=== PATIENT | female | born 1965 | race Asian ===

== ENCOUNTER 2017-07-24 08:00 | Emergency (ER) | payer BC ==
--- NOTE | 2017-07-24 08:57 | EDM.PDOCBH ---
ED HPI GENERAL MEDICAL PROBLEM - General Stated Complaint: Acetaminophen overdose Time Seen by Provider: 07/24/17 08:29 Source of Information: Reports: Patient History Limitations: Reports: No Limitations - History of Present Illness INITIAL COMMENTS - FREE TEXT/NARRATIVE: Patient presents with intentional acetaminophen ingestion at about 0700 this morning. She and her were arguing and he threatened divorce and taking her house. She is very upset and worried about this because the house was hers and was in a trust for her kids after her first and now she is afraid she will lose it all. So she grabbed a bottle of 650mg acetaminophen and took three handfuls and swallowed them. She dropped a few in the sink and there are 41 left of a 100 tablet bottle. We estimate approximately 50 tablets which would be 32,500 mg. We contacted poison control who gave us instruction on testing and treatment; they advised drawing acetaminophen level now and again at 4 hours post-ingestion and to initiate treatment, if needed, within 8 hours. Patient denies any previous attempts of suicide and doesn't have frequent or on-going thoughts of suicide. She denies history of liver problems. She takes no other medications and denies any other meds today than the Acetaminophen. Patient's informs us that she has tried this twice before but didn't seek medical treatment. - Related Data Allergies Allergy/AdvReac Type Severity Reaction Status Date / Time No Known Drug Allergies Allergy Cannot Verified 07/24/17 09:01 Remember ED ROS GENERAL - Review of Systems Review Of Systems: See Below Constitutional: Denies: Fever, Chills, Malaise, Weakness HEENT: Reports: Other (she has been crying all morning which is causing runny/ stuffy nose). Denies: Ear Pain, Throat Swelling, Vision Change Respiratory: Denies: Shortness of Breath, Wheezing Cardiovascular: Denies: Chest Pain, Syncope Endocrine: Reports: No Symptoms GI/Abdominal: Denies: Difficulty Swallowing, Distension, Vomiting : Denies: Dysuria, Flank Pain Musculoskeletal: Reports: No Symptoms Skin: Denies: Cyanosis, Jaundice, Mottled, Pallor, Diaphoresis Neurological: Denies: Confusion, Dizziness, Headache, Numbness, Seizure, Trouble Speaking, Difficulty Walking, Weakness Psychiatric: Reports: Other (Patient denies history of depression.). Denies: Agitation, Confusion ED EXAM, BEHAVIORAL HEALTH - Physical Exam Exam: See Below Exam Limited By: No Limitations General Appearance: Alert, WD/WN, No Apparent Distress COURSE, BEHAVIORAL HEALTH COMP - Course Vital Signs: Last Vital Signs Temp 98.7 F 07/24/17 08:10 Pulse 104 H 07/24/17 08:10 Resp 20 07/24/17 08:10 BP 139/93 H 07/24/17 08:10 Pulse Ox Orders, Labs, Meds: Active Orders 24 hr Category Date Time Status Acetylcysteine [Acetadote 20%] 9,600 mg Med 07/24/17 09:53 Active Dextrose 5% in Water 250 ml IV ONETIME Medication Orders Acetylcysteine 9,600 mg/ (Dextrose/Water) 298 mls @ 298 mls/hr IV ONETIME ONE Stop: 07/24/17 10:41 Last Admin: 07/24/17 09:58 Dose: 298 mls/hr Laboratory Tests 07/24/17 07/24/17 07/24/17 Range/Units 08:35 08:35 08:35 WBC 9.6 (5.0-10.0) 10^3/uL RBC 5.36 (3.80-5.50) 10^6/uL Hgb 16.0 D (12.0-16.0) g/dL Hct 48.9 H (37.0-47.0) % MCV 91.2 D (82.0-92.0) fL MCH 29.9 (27.0-31.0) pg MCHC 32.7 (32.0-36.0) g/dL RDW 12.4 (11.5-14.5) % Plt Count 279 (150-300) 10^3/uL MPV 8.1 (7.4-10.4) fL Neut % (Auto) 61.1 (50.0-70.0) % Lymph % (Auto) 31.4 (20.0-40.0) % Eagle % (Auto) 5.7 (2.0-8.0) % Eos % (Auto) 1.4 (1.0-3.0) % Baso % (Auto) 0.4 (0.0-1.0) % Neut # (Auto) 6.0 (2.5-7.0) 10^3/uL Lymph # (Auto) 3.0 (1.0-4.0) 10^3/uL Eagle # (Auto) 0.5 (0.1-0.8) 10^3/uL Eos # (Auto) 0.1 (0.1-0.3) 10^3/uL Baso # (Auto) 0.0 (0.0-0.1) 10^3/uL PT (8.9-11.4) SEC INR (0.9-1.1) Sodium 142 (136-145) mmol/L Potassium 3.3 (3.3-5.3) mmol/L Chloride 104 (98-115) mmol/L Carbon Dioxide 18.6 L (21.0-32.0) mmol/L BUN 11 (6-25) mg/dL Creatinine 0.55 (0.51-1.17) mg/dL Est Cr Clr Drug Dosing 96.78 mL/min Estimated GFR (MDRD) > 60 mL/min Glucose 128 H (70-110) mg/dL Calcium 8.8 (8.7-10.3) mg/dL Total Bilirubin 0.4 (0.2-1.0) mg/dL Direct Bilirubin 0.1 (0.0-0.2) mg/dL AST 19 (15-37) U/L ALT 26 (12-78) U/L Alkaline Phosphatase 67 (46-116) IU/L Total Protein 8.0 (6.4-8.2) g/dL Albumin 4.27 (3.00-4.80) g/dL Acetaminophen 209.7 H (10.0-30.0) ug/mL 07/24/17 Range/Units 08:35 WBC (5.0-10.0) 10^3/uL RBC (3.80-5.50) 10^6/uL Hgb (12.0-16.0) g/dL Hct (37.0-47.0) % MCV (82.0-92.0) fL MCH (27.0-31.0) pg MCHC (32.0-36.0) g/dL RDW (11.5-14.5) % Plt Count (150-300) 10^3/uL MPV (7.4-10.4) fL Neut % (Auto) (50.0-70.0) % Lymph % (Auto) (20.0-40.0) % Eagle % (Auto) (2.0-8.0) % Eos % (Auto) (1.0-3.0) % Baso % (Auto) (0.0-1.0) % Neut # (Auto) (2.5-7.0) 10^3/uL Lymph # (Auto) (1.0-4.0) 10^3/uL Eagle # (Auto) (0.1-0.8) 10^3/uL Eos # (Auto) (0.1-0.3) 10^3/uL Baso # (Auto) (0.0-0.1) 10^3/uL PT 9.5 (8.9-11.4) SEC INR 0.9 (0.9-1.1) Sodium (136-145) mmol/L Potassium (3.3-5.3) mmol/L Chloride (98-115) mmol/L Carbon Dioxide (21.0-32.0) mmol/L BUN (6-25) mg/dL Creatinine (0.51-1.17) mg/dL Est Cr Clr Drug Dosing mL/min Estimated GFR (MDRD) mL/min Glucose (70-110) mg/dL Calcium (8.7-10.3) mg/dL Total Bilirubin (0.2-1.0) mg/dL Direct Bilirubin (0.0-0.2) mg/dL AST (15-37) U/L ALT (12-78) U/L Alkaline Phosphatase (46-116) IU/L Total Protein (6.4-8.2) g/dL Albumin (3.00-4.80) g/dL Acetaminophen (10.0-30.0) ug/mL Medications Generic Name Dose Route Start Last Admin Trade Name Freq PRN Reason Stop Dose Admin Acetylcysteine 9,600 mg/ 298 mls @ 298 mls/hr 07/24/17 09:53 07/24/17 09:58 Dextrose/Water IV 07/24/17 10:41 298 mls/hr ONETIME ONE Administration Discontinued Medications Generic Name Dose Route Start Last Admin Trade Name Freq PRN Reason Stop Dose Admin Acetylcysteine 9,600 mg/ 1,048 mls @ 200 mls/hr 07/24/17 09:42 Sodium Chloride IV 07/24/17 14:56 ONETIME ONE Re-Assessment/Re-Exam: Acetaminophen level is 209.7 and this was drawn 1.5 hours post ingestion. Patient would like to go to [facility] if she has to be transferred for treatment. I discussed case with Dr. Alvarez (hospitalist) and poison control on 3-way call and we will initiate acetylcysteine IV treatment here and transfer to ICU there via ambulance. Keri, our hospital pharmacist, is preparing the dose for administration per protocol. Patient has remained stable throughout ER course. Poison control informed us that there is no harm in waiting for the 4-hour acetaminophen recheck before initiating treatment but to be safe we all decided to initiate treatment now and transfer [facility]. Departure - Departure Time of Disposition: :53 Disposition: DC/Tfer to Acute Hospital 02 Condition: Good Clinical Impression: Acetaminophen overdose Qualifiers: Encounter type: initial encounter Injury intent: intentional self-harm Qualified Code(s): T39.1X2A - Poisoning by 4-Aminophenol derivatives, intentional self-harm, initial encounter - Discharge Information Referrals: PCP,Unobtain [Ordering Only Provider] - - My Orders Last 24 Hours: My Active Orders 07/24/17 09:53 Acetylcysteine [Acetadote 20%] 9,600 mg Dextrose 5% in Water 250 ml IV ONETIME - Assessment/Plan Last 24 Hours: My Active Orders 07/24/17 09:53 Acetylcysteine [Acetadote 20%] 9,600 mg Dextrose 5% in Water 250 ml IV ONETIME
[2017-07-24 09:04] LABS: ACETAMINOPHEN 209.7 ug/mL (10.0-30.0)
[2017-07-24 09:29] LABS: CHLORIDE,CL 104 mmol/L (98-115); SODIUM,NA 142 mmol/L (136-145)
[2017-07-24] MEDS: WATER IV ONE ×2 (09:58)
[2017-07-24] MEDS: DEXTROSE 5% IV ONE ×2 (09:58)
[2017-07-24] MEDS: ACETYLCYSTEINE IV ONE ×3 (09:58→13:13)
[2017-07-24] MEDS: SODIUM CHLORIDE 0.45% IV ONE (13:13)
== END 2017-07-24 10:25 ==
LOC: KA.ED 08:00
DX: T39.1X2A Poisoning by 4-Aminophenol derivatives, intentional self-harm, initial encounter (principal)
CPT/HCPCS: 36415; 80048; 80076; 85025; 85610; 96365; 99285; G0480; J7060

== ENCOUNTER 2020-03-08 12:56 | Emergency (ER) | payer BC ==
[2020-03-08 13:30] VITALS: BP 152/94; PULSE 93
--- NOTE | 2020-03-08 13:39 | EDM.PDOC ---
ED HPI GENERAL MEDICAL PROBLEM - General Chief Complaint: ENT Problem Stated Complaint: NOSEBLEED Time Seen by Provider: 03/08/20 13:15 Source of Information: Reports: Patient History Limitations: Reports: No Limitations - History of Present Illness INITIAL COMMENTS - FREE TEXT/NARRATIVE: 54 YO WF PRESENTS TO ER WITH INTERMITTENT EPISTASIS WHICH BEGAN YESTERDAY. PT REPORTS BLEEDING IS WELL CONTROLLED BUT CONCERNING BECAUSE IT CONTINUED TO BLEED X 3 OCCURRENCES SINCE YESTERDAY. PT REPORTS BLEEDING IS CURRENTLY CONTROLLED. PT REPORTS BLEEDING FROM LEFT NARES. PT STATES WHEN SHE BENDS OVER OR IS WORKING IS WHEN THE NOSE BLEEDS ARE OCCURRING. PT DENIES ANY INJURY, NO KNOWN HISTORY OF HYPERTENSION, NOT TAKING ANY ASPRIN OR BLOOD THINNERS AT THIS TIME. Onset Date: 03/07/20 Location: Reports: Face Severity: Mild Improves with: Reports: Rest Worsens with: Reports: Movement Associated Symptoms: Reports: No Other Symptoms Headache Pain Score (Numeric/FACES): 6 - Related Data Allergies Allergy/AdvReac Type Severity Reaction Status Date / Time Iodinated Contrast Media Allergy Severe Difficulty Verified 03/08/20 13:25 Breathing Home Meds: Home Meds . [No Known Home Meds] 03/08/20 [History] Past Medical History [employer] History: Reports: Other Musculoskeletal History: problem with her back was to have surgery 2 years ago but refused - Past Surgical History GI Surgical History: Reports: Cholecystectomy Social & Family History - Tobacco Use Tobacco Use Status *Q: Never Tobacco User - Caffeine Use Caffeine Use: Reports: Soda - Recreational Drug Use Recreational Drug Use: No ED ROS GENERAL - Review of Systems Review Of Systems: See Below Constitutional: Reports: No Symptoms HEENT: Reports: Nosebleed Respiratory: Reports: No Symptoms Cardiovascular: Reports: No Symptoms Endocrine: Reports: No Symptoms GI/Abdominal: Reports: No Symptoms : Reports: No Symptoms Musculoskeletal: Reports: No Symptoms Skin: Reports: No Symptoms Neurological: Reports: No Symptoms Psychiatric: Reports: No Symptoms Hematologic/Lymphatic: Reports: No Symptoms Immunologic: Reports: No Symptoms ED EXAM, GENERAL - Physical Exam Exam: See Below Exam Limited By: No Limitations General Appearance: Alert, WD/WN, No Apparent Distress Nose: Other (DRY MUCOUS MEMBRANES; DRY BLOOD IN ANTERIOR LEFT NARE; NO ACTIVE BLEEDING) Course - Vital Signs Last Recorded V/S: Last Vital Signs Temp 98.3 F 03/08/20 13:25 Pulse 93 01/13/21 13:25 Resp 20 03/08/20 13:25 BP 152/94 H 03/08/20 13:25 Pulse Ox 98 03/08/20 13:25 - Orders/Labs/Meds Meds: Medications Discontinued Medications Generic Name Dose Route Start Last Admin Trade Name Elyssa PRN Reason Stop Dose Admin Oxymetazoline HCl Confirm 03/08/20 13:17 Afrin Original 0.05% Nasal [place] Administered 03/08/20 13:18 Dose 15 ml .ROUTE .STK-MED ONE Departure - Departure Time of Disposition: 14:22 Disposition: Home, Self-Care 01 Condition: Good Clinical Impression: Epistaxis - Discharge Information Instructions: Nosebleed, [id number] Referrals: Nia Grier MD [Physician] - Forms: ED Department Discharge Additional Instructions: 1. DISCHARGE HOME 2. AFRIN NASAL SPRAY- 2 SPRAYS IN EACH NOSTRIL 2 TIMES X DAY NEEDED FOR ACTIVE BLEEDING 3. MOISTURIZE INSIDE NOSE WITH EUCERIN OINTMENT 4. IF BLEEDING RETURNS USE AFRIN FOLLOWED BY COMPRESSION OF NOSE X 5 MINUTES 5. RETURN TO ER FOR WORSENING SYMPTOMS 6. FOLLOW UP WITH PCP FOR FURTHER EVALUATION AND TREATMENT IF BLEEDING BECOMES MORE FREQUENT Sepsis Event Note (ED) - Evaluation Sepsis Screening Result: No Definite Risk - Focused Exam Vital Signs: Vital Signs Temp Pulse Resp BP Pulse Ox 03/08/20 13:25 98.3 F 93 20 152/94 H 98 - Assessment/Plan Assessment:: 1. ANTERIOR LEFT NARE EPISTASIS- BLEEDING CONTROLLED Plan: 1. DISCHARGE HOME 2. AFRIN NASAL SPRAY- 2 SPRAYS IN EACH NOSTRIL 2 TIMES X DAY NEEDED FOR ACTIVE BLEEDING 3. MOISTURIZE INSIDE NOSE WITH EUCERIN OINTMENT 4. IF BLEEDING RETURNS USE AFRIN FOLLOWED BY COMPRESSION OF NOSE X 5 MINUTES 5. RETURN TO ER FOR WORSENING SYMPTOMS 6. FOLLOW UP WITH PCP FOR FURTHER EVALUATION AND TREATMENT IF BLEEDING BECOMES MORE FREQUENT
[2020-03-08] MEDS: Oxymetazoline 0.05% Nasal Spray 15 ML Bottle NAS ONE (14:10)
[2020-03-08] MEDS: Oxymetazoline 0.05% Nasal Spray 15 ML Bottle ONE (14:45)
== END 2020-03-08 14:45 | disposition home or self-care (01) ==
LOC: KA.ED 12:56
DX: R04.0 Epistaxis (principal); Z91.041 Radiographic dye allergy status
CPT/HCPCS: 99283; A9270-GY